=== PATIENT | female | born 1990 | race Two or more races ===

== ENCOUNTER → 2021-12-05 | Outpatient (CLI) | payer OTHER ==
[~2021-12-05] MED LIST: AIMO70IN2 SQ; AUGM875T28 PO; BUSP10TA PO; BUSP30TA PO; BUTA-198 PO; COLA100C5 PO; FLOM0.4C39 PO; IBUP-1114 PO; ISOT40CA5 PO; LABE100T4 PO; LABE20TAB PO; LORA1TAB4 PO; MAPA500T2 PO; NIFE30TA50 PO; OXYC1TAB23 PO; PERC5TAB12 PO; PRENTAB45 PO; PROC30TA PO; TRAZ-257 PO; VICO5TAB17 PO; VIIB40TA PO; VITAPRTA PO; ZOLO50TA PO
== END ==
LOC: M LABSMTC 09:06
PROVIDERS: ATTEND Anesthesiology
DX: Z20.822 Contact with and (suspected) exposure to COVID-19 (principal)

== ENCOUNTER 2021-12-09 11:43 | Day surgery (SDC) | payer OTHER ==
[~2021-12-09] VITALS: Ht 160 cm; Wt 87.5 kg
[2021-12-09] MEDS ORDERED: fentaNYL 100 MCG/2 ML INJECTION As Ordered ONE (12:40)
[2021-12-09 14:10] VITALS: BP 126/83
[2021-12-12] MEDS ORDERED: NS 1,000 ML IV ONE (06:00)
== END 2021-12-09 14:17 | disposition home or self-care (01) ==
LOC: M OPP 11:43
PROVIDERS: ATTEND Internal Medicine Gastroenterology
DX: K22.89 Other specified disease of esophagus (principal); K31.A0 Gastric intestinal metaplasia, unspecified; R12 Heartburn; Z79.899 Other long term (current) drug therapy; F17.210 Nicotine dependence, cigarettes, uncomplicated; Z87.442 Personal history of urinary calculi; Z82.69 Family history of other diseases of the musculoskeletal system and connective tissue; Z80.6 Family history of leukemia
CPT/HCPCS: 43239; 88305; J3010

== ENCOUNTER 2023-05-01 11:31 | Day surgery (SDC) | payer OTHER ==
[~2023-05-01] VITALS: Ht 160 cm; Wt 59.1 kg
[~2023-05-01 11:31] MED LIST changes: +BUSP15TA47 PO; +CALC250T PO; -LABE100T4 PO; +LABE100T6 PO; +LORA1TAB23 PO; -LORA1TAB4 PO; +MULTCHW14 PO; +NIFE-3 PO; -NIFE30TA50 PO; +NS 1,000 ML IV ONE; +OMEP40CA5 PO; +SUCR1TAB56 PO; +VITA-113 SL; +VITA100093 PO
[2023-05-01] MEDS ORDERED: fentaNYL 100 MCG/2 ML INJECTION As Ordered ONE (13:28)
[2023-05-01] MEDS ORDERED: LIDOCAINE 2% 100MG/5ML SDV (FOR ANES.) As Ordered ONE (13:28)
[2023-05-01] MEDS ORDERED: propofoL 200 MG/20 ML VIAL As Ordered ONE (13:28)
[2023-05-01 13:47] VITALS: TEMP 97.5
[2023-05-01 14:05] VITALS: BP 119/76; O2SAT 100
== END 2023-05-01 14:05 | disposition home or self-care (01) ==
LOC: M OPP 11:31
PROVIDERS: ATTEND Internal Medicine Gastroenterology
DX: K31.89 Other diseases of stomach and duodenum (principal); K22.89 Other specified disease of esophagus; K28.5 Chronic or unspecified gastrojejunal ulcer with perforation; Z98.84 Bariatric surgery status; Z79.899 Other long term (current) drug therapy
CPT/HCPCS: 43239; 88305; J3010

== ENCOUNTER 2024-11-23 18:04 | Emergency (ER) | payer OTHER ==
[~2024-11-23] VITALS: Ht 162.6 cm; Wt 63.6 kg
[~2024-11-23 18:04] MED LIST changes: -NS 1,000 ML IV ONE
[2024-11-23 18:09] VITALS: BP 134/92; TEMP 98.3; O2SAT 100
[2024-11-23] MEDS ORDERED: ARIP1TAB6 (18:20)
[2024-11-23] MEDS ORDERED: TRAZ-257 PO (18:20)
[2024-11-23] MEDS ORDERED: LAMO100T3 (18:20)
[2024-11-23] MEDS ORDERED: ADDE10CA3 PO (18:20)
[2024-11-23] MEDS ORDERED: BUSP30TA (18:21)
[2024-11-23] MEDS ORDERED: VILA20TA (18:21)
[2024-11-23 19:09] LABS: BASO # 0.1 10^3/uL (0.0-0.2); BASO % 1.1 % (0.0-1.0); EOS # 0.3 10^3/uL (0.0-0.5); HEMATOCRIT 42.6 % (36.0-47.0); HEMOGLOBIN 14.8 g/dl (12.0-15.5); LYMPH # 2.2 10^3/uL (1.5-5.0); LYMPH % 29.1 % (24.0-44.0); MEAN CORPUSCULAR HEMOGLOBIN 31.2 pg (27.0-33.0); MEAN CORPUSCULAR HGB CONC 34.7 g/dl (32.0-36.5); MEAN CORPUSCULAR VOLUME 89.9 fl (80.0-96.0); MONO # 0.6 10^3/uL (0.0-0.8); MONO % 7.4 % (2.0-8.0); NEUTROPHILS # 4.4 10^3/uL (1.5-8.5); NEUTROPHILS % 58.1 % (36.0-66.0); PLATELET COUNT, AUTOMATED 261 10^3/uL (150-450); RED BLOOD COUNT 4.74 10^6/uL (4.00-5.40); WHITE BLOOD COUNT 7.5 10^3/uL (4.0-10.0)
[2024-11-23 19:30] LABS: HCG, SERUM QUALITATIVE NEGATIVE (NEGATIVE)
[2024-11-23 19:34] LABS: ALBUMIN 4.4 G/DL (3.2-5.2); ALKALINE PHOSPHATASE 81 U/L (35-104); ALT/SGPT 37 U/L (7.0-40); AST/SGOT 31 U/L (<34); BILIRUBIN,DIRECT 0.2 MG/DL (<0.4); BILIRUBIN,TOTAL 0.9 MG/DL (0.3-1.2); BLOOD UREA NITROGEN 10 MG/DL (9-23); CALCIUM LEVEL 9.7 MG/DL (8.5-10.1); CARBON DIOXIDE LEVEL 22 MMOL/L (20-31); CHLORIDE LEVEL 109 MMOL/L (98-107); CREATININE FOR GFR 0.57 MG/DL (0.55-1.30); GLOMERULAR FILTRATION RATE > 60.0 (>60); GLUCOSE, FASTING 86 MG/DL (60-100); POTASSIUM SERUM 4.2 MMOL/L (3.5-5.1); SODIUM LEVEL 140 MMOL/L (136-145); TOTAL PROTEIN 7.6 G/DL (5.7-8.2)
== END 2024-11-23 21:33 | disposition left against medical advice (07) ==
LOC: M ED 18:04
DX: Z53.21 Procedure and treatment not carried out due to patient leaving prior to being seen by health care provider (principal)